=== PATIENT | male | born 1975 | race Caucasian/White ===

== ENCOUNTER 2018-12-23 14:12 | Outpatient (CLI) | payer MEDICAID ==
[~2018-12-23] VITALS: Ht 188 cm; Wt 95.3 kg
[2018-12-23 14:00] VITALS: BP 110/67
[2018-12-23] MEDS ORDERED: GABAPENTIN300 MG ORAL (15:40)
[2018-12-23] MEDS ORDERED: PROTONIX40 MG ORAL (15:40)
[2018-12-23] MEDS ORDERED: LOSARTAN POTAS100 MG ORAL (15:40)
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
== END 2018-12-23 14:42 | disposition home or self-care (01) ==
LOC: PAN 14:12
DX: I10 Essential (primary) hypertension (principal); K21.9 Gastro-esophageal reflux disease without esophagitis; Z98.1 Arthrodesis status; K40.90 Unilateral inguinal hernia, without obstruction or gangrene, not specified as recurrent; M62.58 Muscle wasting and atrophy, not elsewhere classified, other site
CPT/HCPCS: 99202